=== PATIENT | female | born 1990 | race American Indian/Alaskan Native ===

== ENCOUNTER 2019-05-24 22:38 | Emergency (ER) | payer MEDICAID ==
[2019-05-24 23:35] VITALS: BP 139/71
--- NOTE | 2019-05-25 01:48 | XRay Report ---
CHEST 2 VIEWS INDICATION / CLINICAL INFORMATION: cough, SOB. COMPARISON: None available. FINDINGS: SUPPORT DEVICES: None. HEART / MEDIASTINUM: No significant abnormality. LUNGS / PLEURA: No significant pulmonary or pleural abnormality. .No pneumothorax. ADDITIONAL FINDINGS: No significant additional findings. IMPRESSION: 1. No acute findings. Signer Name: Jesus Watson MD Signed: 05/25/2019 1:44 AM Workstation Name: [id number]
--- NOTE | 2019-05-25 03:01 | Emergency Department Report ---
ED General Adult HPI - General Chief complaint: Upper Respiratory Infection Stated complaint: FLU SX Time Seen by Provider: 05/25/19 01:27 Source: patient Mode of arrival: Ambulatory Limitations: No Limitations - History of Present Illness Initial comments: 29-year-old -Iranian female without significant past medical history presents with complaints of cough, body aches, and decreased appetite 3 days. Patient states her symptoms were worse on Tuesday and Tuesday and began to improve on Tuesday. She denies any nausea/vomiting, diarrhea, abdominal pain, shortness of breath, hemoptysis, chest pain, and states cough is nonproductive. She reports a tactile fever on Tuesday and Tuesday. She also reports that her friend that she was hanging with on Tuesday has the same symptoms - Related Data Previous Rx's Medication Instructions Recorded Last Taken Type Benzonatate 200 mg PO TID PRN #20 capsule 05/25/19 Unknown Rx Allergies Allergy/AdvReac Type Severity Reaction Status Date / Time No Known Allergies Allergy Verified 04/05/13 03:08 ED Review of Systems ROS: Stated complaint: FLU SX Other details as noted in HPI Constitutional: denies: chills, fever ENT: denies: ear pain, throat pain Respiratory: cough. denies: shortness of breath, SOB with exertion, SOB at rest Cardiovascular: denies: chest pain, palpitations Gastrointestinal: denies: abdominal pain, nausea, diarrhea Genitourinary: denies: urgency, dysuria Musculoskeletal: denies: back pain Skin: denies: rash, lesions Neurological: denies: headache ED Past Medical Hx - Past Medical History Previous Medical History?: No Hx Hypertension: No Hx Congestive Heart Failure: No Hx Diabetes: No Hx Deep Vein Thrombosis: No Hx Renal Disease: No Hx Sickle Cell Disease: No Hx Seizures: No Hx Asthma: No Hx COPD: No Hx HIV: No - Surgical History Past Surgical History?: No - Social History Smoking Status: Never Smoker Substance Use Type: None - Medications Home Medications: Home Medications Medication Instructions Recorded Confirmed Last Taken Type Benzonatate 200 mg PO TID PRN #20 capsule 05/25/19 Unknown Rx ED Physical Exam - General Limitations: No Limitations General appearance: alert, in no apparent distress - Head Head exam: Present: atraumatic, normocephalic - Eye Eye exam: Present: normal appearance - ENT ENT exam: Present: mucous membranes moist - Neck Neck exam: Present: normal inspection - Respiratory Respiratory exam: Present: normal lung sounds bilaterally. Absent: respiratory distress - Cardiovascular Cardiovascular Exam: Present: regular rate, normal rhythm. Absent: systolic murmur, diastolic murmur, rubs, gallop - GI/Abdominal GI/Abdominal exam: Present: soft. Absent: distended, tenderness - Extremities Exam Extremities exam: Present: normal inspection. Absent: calf tenderness (now swelling or edema noted) - Back Exam Back exam: Present: normal inspection - Neurological Exam Neurological exam: Present: alert, oriented X3 - Psychiatric Psychiatric exam: Present: normal affect, normal mood - Skin Skin exam: Present: warm, dry, intact, normal color. Absent: rash ED Course Vital Signs 05/24/19 23:20 Temperature 98.3 F Pulse Rate 96 H Respiratory 20 Rate Blood Pressure 139/71 O2 Sat by Pulse 99 Oximetry ED Medical Decision Making - Radiology Data Radiology results: report reviewed CHEST 2 VIEWS INDICATION / CLINICAL INFORMATION: cough, SOB. COMPARISON: None available. FINDINGS: SUPPORT DEVICES: None. HEART / MEDIASTINUM: No significant abnormality. LUNGS / PLEURA: No significant pulmonary or pleural abnormality. .No pneumothorax. ADDITIONAL FINDINGS: No significant additional findings. IMPRESSION: 1. No acute findings. - Medical Decision Making 29-year-old -Iranian female without significant past medical history presents with complaints of cough, body aches, and decreased appetite 3 days. She denies any red flag symptoms. Her vitals are normal. Cardiac and lung exam were normal. Chest x-ray is negative for acute findings. Patient appears well and is nontoxic appearing. Symptoms were likely due to a viral syndrome or influenza. Patient states symptoms are improving since their onset on Tuesday. She is stable for discharge home. Recommend follow-up with primary care provider in 5 days as needed. Discussed very strict return precautions in detail with patient who verbalizes understanding. Critical care attestation.: If time is entered above; I have spent that time in minutes in the direct care of this critically ill patient, excluding procedure time. ED Disposition Clinical Impression: Viral syndrome Disposition: -01 TO HOME OR SELFCARE Is pt being admited?: No Condition: Stable Instructions: Influenza (ED) Prescriptions: Benzonatate 200 mg PO TID PRN #20 capsule PRN Reason: Cough Referrals: PRIMARY CARE, [Primary Care Provider] - 3-5 Days
== END 2019-05-25 03:25 | disposition home or self-care (01) ==
LOC: ED 22:38
DX: B34.9 Viral infection, unspecified (principal); Z79.899 Other long term (current) drug therapy
CPT/HCPCS: 71046

== ENCOUNTER 2019-10-22 04:59 | Emergency (ER) | payer MEDICAID ==
[2019-10-22 05:29] VITALS: BP 118/50
--- NOTE | 2019-10-22 05:41 | Emergency Department Report ---
Chief Complaint: Upper Respiratory Infection Stated Complaint: COUGH, LOSS OF SENSE OF SMELL Time Seen by Provider: 10/22/19 05:37 - HPI History of Present Illness: 29-year-old -Finnish female presents to the emergency room stating she had a cough and headache 3 days ago but went away. Patient complains of nasal congestion and unable to smell. Patient denies any fever chills no nausea no vomiting or diarrhea no sore throat no chest pain. - Exam Vital Signs: Vital Signs 10/22/19 10/22/19 05:02 05:05 Temperature 97.8 F Pulse Rate 62 Respiratory 16 Rate Blood Pressure 118/50 O2 Sat by Pulse 99 Oximetry Physical Exam: Gen: alert oriented NAD Cardic: regular rate and rhythm no murmurs appreciated Resp: Clear to auscultation bilateral no wheezing no rales or rhonchi. Abdomen: Soft nontender nondistended normal bowel sounds. MSE screening note: Focused history and physical exam performed. Due to findings the following was ordered: 29-year-old -Finnish female presents to the emergency room stating she had a cough and headache 3 days ago but went away. Patient complains of nasal congestion and unable to smell. Patient denies any fever chills no nausea no vomiting or diarrhea no sore throat no chest pain. Patient is recommended to follow-up at 1 of the COVID-19 testing states that she is interested in knowing if she has COVID. Patient can use [id number] Flonase nasal spray for nasal congestion. ED Disposition for MSE Disposition: Z-07 MED SCREENING EXAM-LEFT Is pt being admited?: No Does the pt Need Aspirin: No Condition: Stable Additional Instructions: Patient is recommended to follow-up at 1 of the COVID-19 testing states that she is interested in knowing if she has COVID. Patient can use [id number] Flonase nasal spray for nasal congestion. Free testing at [facility] you must go online to register before appearing.
== END 2019-10-22 05:49 | disposition left against medical advice (07) ==
LOC: ED 04:59
DX: R05 Cough (principal); R51 Headache; R09.81 Nasal congestion; Z53.21 Procedure and treatment not carried out due to patient leaving prior to being seen by health care provider